=== PATIENT | female | born 1985 ===

== ENCOUNTER 2018-05-23 18:46 | Inpatient (IN) | payer BC ==
[2018-05-23] MEDS ORDERED: MISOPROSTOL 200 MCG TAB PR PRN (18:57)
[2018-05-23] MEDS ORDERED: OLIVE OIL 118 ML BTL MISC PRN (18:57)
[2018-05-23] MEDS ORDERED: TERBUTALINE SULFATE 1 MG/ML VIAL IV PRN (18:57)
[2018-05-23] MEDS ORDERED: IBUPROFEN 600 MG TAB PO PRN (18:57)
[2018-05-23] MEDS ORDERED: LIDOCAINE 1% 300 MG/30 ML SDV SC PRN (18:57)
[2018-05-23] MEDS ORDERED: LR 1,000 ML IV PRN (18:57)
[2018-05-23] MEDS ORDERED: EPSOM SALT 454 GM TP PRN (18:57)
[2018-05-23] MEDS ORDERED: OXYTOCIN/RINGERS LACTATE 1,000 ML IV PRN (18:57)
[2018-05-23] MEDS ORDERED: ONDANSETRON 4 MG/2 ML VIAL IVP PRN (18:58)
[2018-05-23] MEDS ORDERED: NALOXONE HCL 0.4 MG/ML INJ IVP PRN (18:58)
[2018-05-23] MEDS ORDERED: PHENYLEPHRINE HCL 100 MCG/ML SYR IVP PRN (18:58)
[2018-05-23] MEDS ORDERED: LR 500 ML IV SCH (19:00)
[2018-05-23] MEDS ORDERED: fentaNYL 2MCG/ML/BUP 0.1% RTU 100 ML EP SCH (19:00)
[2018-05-23] MEDS ORDERED: BUPIVACAINE 0.25% 30 ML SDV ONE (19:03)
[2018-05-23] MEDS ORDERED: PHENYLEPHRINE HCL 100 MCG/ML SYR ONE (19:03)
[2018-05-23] MEDS ORDERED: fentaNYL 100 MCG/2 ML INJ ONE (19:04)
[2018-05-23 19:12] LABS: PLATELET COUNT 256 10^3/uL (150-400)
[2018-05-23] MEDS ORDERED: fentaNYL 200 MCG, BUPIVACAINE 0.5% 20 ML in NS 100 ML EP SCH (19:30)
--- NOTE | 2018-05-23 19:52 | PREANESOB ---
Obstetric Pre-Anesthesia Info - General Info Proposed Procedure: labor, possible - Info Status: Full Term Monitors: External FHR Pattern: Reassuring - Labor Status Cervical Dilation per last OB SVE: 10 Labor Epidural: Proposed ( center transfer for decreased FHR, improved while in ambulance, now continuing in labor) Anesthesia ROS: previous labor epid without problems, d&c without problems, neg fam hx, nkda, no home meds, neg ROS except for prewgnancy in labor, see other software for vital signs Allergies/Adverse Reactions: Allergy/AdvReac Type Severity Reaction Status Date / Time No Known Allergies Allergy Unverified 05/23/18 18:56 Visit Medications: Generic Name Dose Route Start Last Admin Trade Name Freq PRN Reason Stop Dose Admin Diphenhydramine HCl 25 - 50 mg 05/23/18 18:58 Benadryl Injection IVP 11/19/18 18:57 Q6HRS PRN Itching Ephedrine Sulfate 10 mg 05/23/18 18:58 Ephedrine Sulfate IV 11/19/18 18:57 .Q2M PRN Hypotension Lactated Ringer's 500 mls @ 0 mls/hr 05/23/18 19:00 Lr IV 11/19/18 18:59 CONT JAMAAL As Directed Lactated Ringer's 1,000 mls @ 0 mls/hr 05/23/18 18:57 Lr IV 05/24/18 18:56 PRN PRN SEE PROTOCOL CONDITIONS Protocol Per Protocol Oxytocin/Lactated Ringer's 1,000 mls @ 125 mls/hr 05/23/18 18:57 Pitocin 20 Units/Lr (Premix) IV PRN PRN Post bleeding Fentanyl 200 mcg/ Bupivacaine 100 mls @ 0 mls/hr 05/23/18 19:30 HCl 20 ml/ Sodium Chloride EP 06/02/18 19:29 CONT JAMAAL Protocol As Directed Ibuprofen 600 mg 05/23/18 18:57 Motrin PO ONCE PRN post , pain Lidocaine HCl 300 mg 05/23/18 18:57 Lidocaine Hcl 1% SC 11/19/18 18:56 ONCE PRN episiotomy Magnesium Sulfate 454 gm 05/23/18 18:57 Epsom Salt TP 11/19/18 18:56 Q1H PRN perineal discomfort Misoprostol 800 - 1,000 mcg 05/23/18 18:57 Cytotec CA ONCE PRN Vaginal Atony/Bleeding Naloxone HCl 0.4 mg 05/23/18 18:58 Narcan IVP 11/19/18 18:57 PRN PRN Respiratory depression [place] Oil 118 ml 05/23/18 18:57 Sweet Oil MISC 11/19/18 18:56 ONCE PRN perineal massage Ondansetron HCl 4 mg 05/23/18 18:58 Zofran IVP 05/24/18 18:57 Q4HRS PRN Nausea/Vomiting, Can't Take PO Phenylephrine HCl 100 mcg 05/23/18 18:58 Neosynephrine IVP 11/19/18 18:57 .Q2M PRN Hypotension Terbutaline Sulfate 0.25 mg 05/23/18 18:57 Brethine IV 11/19/18 18:56 ONCE PRN Tachysystole Discontinued Medications Generic Name Dose Route Start Last Admin Trade Name Freq PRN Reason Stop Dose Admin Bupivacaine HCl Confirm 05/23/18 19:03 Sensorcaine 0.25% Sdv Administered 05/23/18 19:04 Dose 30 ml .ROUTE .STK-MED ONE Fentanyl Confirm 05/23/18 19:04 Sublimaze Administered 05/23/18 19:05 Dose 100 mcg .ROUTE .STK-MED ONE Phenylephrine HCl Confirm 05/23/18 19:03 Neosynephrine Administered 05/23/18 19:04 Dose 1,000 mcg .ROUTE .STK-MED ONE - Anesthesia History Response to Local Anesthetics: Normal Anesthesia & Operative History: No Prior Problems Family Anesthesia History: Negative - Social History Substance Use/Abuse: Denies - Focused Exam Neck exam: FROM Mallampati Score: Class 2 Mouth exam: normal dental/mouth exam Pulmonary: no respiratory distress Cardiovascular: regular rate and rhythym Labs: 05/23/18 18:55 Patient ABO/Rh AB POSITIVE 05/23/18 18:55 - Plan Anesthetic Plan: carmencita Consent Signed and on Chart: Yes Patient/Guardian Understands and Agrees to Plan: Yes Urgent/Emergent Case: Nita siddiqi completed preop but documented later for safe timely pt care
--- NOTE | 2018-05-23 19:54 | POSTANESTH ---
Post Anesthetic Evaluation Cardiovascular Status: Normal, Stable Respiratory Status: Normal, Stable Level of Consciousness/Mental Status: Can Participate in Eval Pain Control: Adequate, Prn Tx Ordered Nausea/Vomiting Control: Adequate, Prn Tx Ordered Complications Possibly Related to Anesthesia: None Noted (uneventful placement of labor epidural, comfortable, motor intact, stable vs)
[2018-05-23] MEDS ORDERED: OLIVE OIL 118 ML BTL ONE (21:47)
[2018-05-23] MEDS ORDERED: LIDOCAINE 1% 300 MG/30 ML SDV ONE (21:47)
[2018-05-23] MEDS ORDERED: AMMONIA AROMATIC 1 EACH AMP IH ONE (21:48)
[2018-05-23] MEDS ORDERED: MISOPROSTOL 200 MCG TAB ONE (21:48)
[2018-05-23] MEDS ORDERED: OXYTOCIN 10 UNIT/ML VIAL ONE ×2 (21:48→22:08)
[2018-05-23] MEDS ORDERED: TERBUTALINE SULFATE 1 MG/ML VIAL ONE (21:48)
[2018-05-23] MEDS ORDERED: LR 500 ML IV PRN (21:58)
[2018-05-23] MEDS ORDERED: OXYTOCIN/RINGERS LACTATE 500 ML IV SCH (22:00)
--- NOTE | 2018-05-24 00:01 | OBPROG ---
Labor Progress Note Assessment/Plan: Assessment: Plan: Subjective/Intrapartum Course: 05/23/18 23:58 pitocin was started for inadequate contractions. she began pushing. will continue pushing. status reassuring. Objective: 05/23/18 18:55 Patient ABO/Rh AB POSITIVE 05/23/18 18:55 - SVE Dilation (cm): 10 Effacement (%): 100 Station: +1 - Contraction Pattern Assessment Current Contraction Pattern: Regular - AP Antepartum Course: 05/23/18 23:59 initiated care in [place] around 12 weeks. transferred to [facility]. spontaneous labor. had decel once complete so transferred to [facility] Oxytocin Orders Assessment - Pre-Induction/Augmentation Assessment Gestational Age: 40 week(s) and 4 day(s) ICD10 Worksheet Patient Problems: Problems Problem Status Onset Delivery normal Acute Normal labor Acute
--- NOTE | 2018-05-24 00:13 | GHP ---
[f rep st] PREOP HISTORY AND PHYSICAL DATE OF ADMISSION: 05/23/2018 ADMISSION DIAGNOSES: Intrauterine at 40-4/7 weeks' gestation, Center transport, active labor, pain management, decelerations at the Center. INDICATIONS: Patient is a 33-year-old 2, para 1-0-0-1, who is 40-4/7 weeks' gestation. She initiated care in [place] in the late first trimester and transferred to the [facility] in 03/2018. Patient had an anatomy ultrasound on 01/01/18, when she was 19 weeks' gestation. Patient began having strong regular contractions this morning and arrived to the [facility] [place] earlier today. She had spontaneous rupture of membranes and progressed to completely dilated. She did begin pushing and had several episodes of heart rate decelerations. When she had a deceleration to the 90s for 4 minutes, EMS was contacted, and she was transported to [facility]. The patient arrived in active labor , completely dilated with a lot of discomfort. heart tracing was reactive upon arrival, and patient requested an epidural, which had provided adequate pain relief. Patient has been started on Pitocin for augmentation of labor. status has remained reassuring. MEDICAL HISTORY: Negative. MEDICATIONS: vitamins. SURGICAL HISTORY: D and C 19 months post possibly for retained placenta ALLERGIES: No known drug allergies. FAMILY MEDICAL HISTORY: Noncontributory. SOCIAL HISTORY: She lives with her partner. She denies tobacco, alcohol, or drug use. OBSTETRICAL AND GYNECOLOGICAL HISTORY: She is a 2, para 1-0-0-1. She has a history of a spontaneous vaginal delivery in 2003, at 40 weeks' gestation of a female infant. She had an epidural with that labor. REVIEW OF SYSTEMS: 10-point review of systems is negative. Positive movement. Positive loss of fluid. Positive contractions. She denies any headache or changes in vision, nausea, vomiting, fevers, or chills. PHYSICAL EXAMINATION: VITAL SIGNS: Stable. GENERAL APPEARANCE: Alert and oriented x3. HEART: Rate is regular, regular. LUNGS: Clear to auscultation bilaterally. ABDOMEN: Gravid, nondistended, nontender. EXTREMITIES: Reveal no calf tenderness or edema. CERVICAL: She is completely dilated and at 0 station. heart tracing is category 1. She is having regular contractions , and is in the vertex presentation. LABS: Blood type A positive. Antibody screen negative. Rubella immune. GBS is negative. HBsAg is negative. Her HbA1c was 5. Her 50 g glucose was 163. Patient did not do a 3-hour glucose tolerance test; however, she had random glucoses, which were in normal limits. ASSESSMENT AND PLAN: 33-year-old 2, para 1-0-0-1, who is 40-4/7 weeks' gestation, who presented in active labor for pain management and because of the decelerations. Patient wishes to receive an epidural and has just been started on Pitocin. /[id number]/MODL MTDD
--- NOTE | 2018-05-24 03:02 | OBDEL ---
Info Type: Vaginal Presentation at Delivery: Vertex L&D Analgesia/Anesthesia Type: Epidural GBS+: No - Hospital Course Intrapartum: 05/23/18 23:58 pitocin was started for inadequate contractions. she began pushing. will continue pushing. status reassuring. Indications for Delivery: Spontaneous Labor Vaginal Delivery - Delivery Provider Delivery Physician/CNM: Sadaf Purvis - Labor and Delivery Onset of Contractions Date: 05/23/18 Onset of Contractions Time: 16:00 Onset of Contractions Type: Augmented Rupture of Membranes Date: 05/23/18 Rupture of Membranes Time: 15:30 Rupture of Membranes Type: Spontaneous Amniotic Fluid Color: Thick Meconium Dilation Complete Date: 05/23/18 Dilation Complete Time: 18:00 Placenta Delivery Date: 05/23/18 Placenta Delivery Time: 02:32 Total Hours of Labor: -13 Laceration: 2nd Degree Repair: 3-0, Vicryl Vaginal Sponge Count Correct: Yes Vaginal Needle Count Correct: Yes Vaginal Sweep Performed: No EBL: 300 - Medications Labor Augmentation/Induction Methods Used: Pitocin (indequater contractions) Data LAN: 05/19/18 Gestational Age: 40 week(s) and 5 day(s) Bhatia Delivery Date: 05/24/18 Delivery Time: 02:28 Sex of Infant: Male Score (1 Min): 9 Score (5 Min): 10 ICD10 Worksheet Patient Problems: Problems Problem Status Onset Normal labor Acute
[2018-05-24] MEDS ORDERED: POLYETHYLENE GLYCOL 3350 17 GM PKT PO PRN (03:04)
[2018-05-24] MEDS ORDERED: LACTULOSE 20 GM/30 ML UDCUP PO PRN (03:04)
[2018-05-24] MEDS ORDERED: BISACODYL 10 MG SUPP PR PRN (03:04)
[2018-05-24] MEDS ORDERED: SIMETHICONE 80 MG TAB CHEW PO PRN (03:04)
[2018-05-24] MEDS ORDERED: HYDROCORTISONE 0.5% CREAM TP PRN (03:04)
[2018-05-24] MEDS ORDERED: MAGNESIUM HYDROXIDE 30 ML UDCUP PO PRN (03:04)
[2018-05-24] MEDS ORDERED: DOCUSATE SODIUM 100 MG CAP PO PRN (03:04)
[2018-05-24] MEDS: IBUPROFEN 600 MG TAB PO SCH ×3 (09:48→22:15)
[2018-05-24] MEDS: SENNOSIDES/DOCUSATE SODIUM TAB PO SCH ×2 (09:51→22:15)
--- NOTE | 2018-05-24 12:07 | POSTANESTH ---
Post Anesthetic Evaluation Cardiovascular Status: Normal, Stable Respiratory Status: Normal, Stable Level of Consciousness/Mental Status: Can Participate in Eval Pain Control: Adequate, Prn Tx Ordered Nausea/Vomiting Control: Adequate, Prn Tx Ordered Complications Possibly Related to Anesthesia: None Noted (uneventfuil resolution of epidural)
[2018-05-24] MEDS: ACETAMINOPHEN 325 MG TAB PO SCH ×2 (16:17)
[2018-05-24] MEDS: ACETAMINOPHEN 325 MG TAB PO PRN (22:17)
[2018-05-25] MEDS: IBUPROFEN 600 MG TAB PO SCH ×3 (04:12→14:32)
[2018-05-25] MEDS: ACETAMINOPHEN 325 MG TAB PO PRN (04:13)
[2018-05-25 09:43] VITALS: BP 107/69
[2018-05-25] MEDS: SENNOSIDES/DOCUSATE SODIUM TAB PO SCH (10:10)
--- NOTE | 2018-05-25 10:28 | OBPP ---
Progress Note Assessment/Plan: Assessment: s/p PPD # 1.5 - pt is stable Plan: Will try [place] for better pain control If pain better controlled, plan for d/c home later today Instructions reviewed with pt Rx given for [place] and Motrin Cont PNV and stool softener Pelvic rest RTC in 4 and 6 weeks for pp visit 05/25/18 10:28 Subjective/ Course: 05/25/18 10:30 Pt seen and examined. She is having discomfort in perineum where tear is. Minimal relief with Tylenol and Motrin. Had Epsom salt bath and made it worse. Pt is OOB, pavithra regular diet, voiding without difficulty and passing flatus. No BM yet. Mod lochia. BF well so far. Would like to go home if pain better controlled. Objective: 05/23/18 18:55 Patient ABO/Rh AB POSITIVE 05/23/18 18:55 Temp Pulse Resp BP Pulse Ox 37.0 C 70 16 107/69 96 05/25/18 09:41 05/25/18 09:41 05/24/18 20:16 05/25/18 09:41 05/24/18 20:16 Uterine Position/Fundal Height: Umbilicus -2 Uterine Tone: Firm Physical Exam - Physical Exam General Appearance: WD/WN, alert, no apparent distress Respiratory: lungs clear, normal breath sounds Cardiac/Chest: regular rate, rhythm Abdomen: normal bowel sounds, non-tender, soft, flatus (+) Extremities: non-tender, normal inspection Skin: normal color, warm/dry Neuro/Psych: alert, normal mood/affect, oriented x 3
[2018-05-25] MEDS ORDERED: HYDROCODONE/APAP 5/325 TAB PO PRN (10:34)
--- NOTE | 2018-05-25 10:34 | OBGCSDC ---
General Delivery Information - General Info : 2 Para: 2 Abortions: 0 Type: Vaginal L&D Analgesia/Anesthesia Type: Epidural, Nitrous Admission Date: 05/23/18 Labs: Patient ABO/Rh AB POSITIVE 05/23/18 18:55 Hct 40.4 % (38.0-47.0) 05/23/18 18:55 - Hospital Course Antepartum: 05/23/18 23:59 initiated care in [place] around 12 weeks. transferred to [facility]. spontaneous labor. had decel once complete so transferred to [facility] Intrapartum: 05/23/18 23:58 pitocin was started for inadequate contractions. she began pushing. will continue pushing. status reassuring. : 05/25/18 10:30 Pt seen and examined. She is having discomfort in perineum where tear is. Minimal relief with Tylenol and Motrin. Had Epsom salt bath and made it worse. Pt is OOB, pavithra regular diet, voiding without difficulty and passing flatus. No BM yet. Mod lochia. BF well so far. Would like to go home if pain better controlled. Vaginal - Delivery Provider Delivery Physician/CNM: Sadaf Purvis - Diagnosis Labor: Augmented Rupture of Membranes Type: Spontaneous Amniotic Fluid Color: Thick Meconium Laceration: 2nd Degree Repair: 3-0, Vicryl - Delivery EBL: 300 [place] Data LAN: 05/19/18 Gestational Age: 40 week(s) and 6 day(s) Bhatia Delivery Date: 05/24/18 Delivery Time: 02:28 Sex of : Male [place] Weight (gm): 3792 g Score (1 Min): 9 Score (5 Min): 10 Discharge Information - Discharge Information Condition: Good Instruction/Follow Up: Four Weeks, Six Weeks
[2018-05-25] MEDS: HYDROCODONE/APAP 5/325 TAB PO PRN ×3 (10:43→15:17)
== END 2018-05-25 16:30 | disposition home or self-care (01) | DRG 775 ==
LOC: FLD 18:46 → FOB 05-24 05:03
PROVIDERS: ADMIT Obstetrics & Gynecology; ATTEND Obstetrics & Gynecology
DX: O76 Abnormality in fetal heart rate and rhythm complicating labor and delivery (principal); O48.0 Post-term pregnancy; O70.1 Second degree perineal laceration during delivery; O62.2 Other uterine inertia; Z3A.40 40 weeks gestation of pregnancy; Z37.0 Single live birth
CPT/HCPCS: J2370; J2590; J3010; J3105